=== PATIENT | female | born 1940 | race Caucasian/White ===

== ENCOUNTER 2022-04-06 12:10 | Emergency (ER) | payer OTHER ==
[2022-04-06 14:20] LABS: BASOPHIL 0.6 % (0-2); EOSINOPHIL 0.2 % (0-7); HCT 39.1 % (37.0-47.0); HGB 13.4 g/dl (12.5-16.0); LYMPHOCYTE 22.5 % (15-48); MCH 30.2 pg (25.0-31.0); MCHC 34.3 g/dL (32.0-36.0); MCV 88.3 fL (78.0-100.0); MONOCYTE 13.4 % (0-12); MPV 9.5 fL (6.0-9.5); NEUTROPHIL 63.1 % (41-80); NRBC 0; PLT 125 K/uL (150-400); RBC 4.43 M/uL (4.20-5.40); RDW 13.1 % (11.5-14.0); WBC 5.2 K/uL (4.0-10.5)
[2022-04-06 14:33] LABS: ALBUMIN 3.3 g/dL (3.4-5.0); BILIRUBIN - TOTAL 0.5 mg/dL (0.2-1.0); BUN/CREAT RATIO (CALC) 17.6 RATIO; CREATININE 1.08 mg/dL (0.51-0.95); GLOBULIN (CALCULATION) 3.5 g/dL; POTASSIUM 3.1 mmol/L (3.5-5.1); TOTAL PROTEIN 6.8 g/dL (6.4-8.2)
[2022-04-06 14:38] LABS: BILIRUBIN NEGATIVE (NEGATIVE); BLOOD TRACE-INTACT Ery/uL (NEGATIVE); CLARITY CLEAR (CLEAR); COLOR YELLOW (YELLOW); GLUCOSE (U) NORMAL (NORMAL); LEUKOCYTES 1+ Leu/uL (NEGATIVE); NITRITE NEGATIVE (NEGATIVE); PROTEIN NEGATIVE (NEGATIVE); SPECIFIC GRAVITY <=1.005 (1.001-1.030); UROBILINOGEN 0.2 mg/dL (0.2-1.0); pH 6.5 (5.0-9.0)
[2022-04-06 14:49] LABS: BACTERIA 1+; URINARY RBC RARE
[2022-04-06 15:04] LABS: FLU B NEGATIVE B (NEGATIVE B)
== END 2022-04-06 15:47 | disposition home or self-care (01) ==
LOC: FER 12:10
PROVIDERS: Emergency Medicine
DX: B34.9 Viral infection, unspecified (principal); I10 Essential (primary) hypertension; E78.5 Hyperlipidemia, unspecified; Z28.310 Unvaccinated for COVID-19; Z79.82 Long term (current) use of aspirin
CPT/HCPCS: 36415; 80053; 81001; 83605; 85025; 87804; 87899; 99284